=== PATIENT | female | born 1950 | race Caucasian/White ===

== ENCOUNTER → 2020-03-14 | Outpatient (CLI) | payer OTHER ==
[2020-03-14 10:56] LABS: CREATININE 0.8 mg/dL (0.6-1.0)
== END ==
LOC: LAB 09:54 → CAT 09:54
PROVIDERS: ATTEND Surgery
DX: K44.9 Diaphragmatic hernia without obstruction or gangrene (principal); M41.86 Other forms of scoliosis, lumbar region; M48.061 Spinal stenosis, lumbar region without neurogenic claudication; R19.5 Other fecal abnormalities; J98.4 Other disorders of lung; Z98.84 Bariatric surgery status